=== PATIENT | male | born 1965 | race African-American/Black ===

== ENCOUNTER 2019-12-07 10:58 | Outpatient (CLI) | payer OTHER ==
--- NOTE | 2019-12-07 11:25 | RAD ---
Exam: XR Hip Lt 2-3 View HISTORY: Left hip pain and grinding sensation. Disability evaluation. COMPARISON: None FINDINGS: There is osteoarthritis involving the left hip joint with osteophytes and joint space narrowing prese nt. No acute fracture, dislocation, or other acute osseous abnormality is identified. Vascular calcifications are seen in the femoral arteries. IMPRESSION: Left hip osteoarthritis without acute osseous abnormality.
== END 2019-12-07 10:59 | disposition home or self-care (01) ==
LOC: BICRAD 10:58
PROVIDERS: ATTEND Internal Medicine
DX: Z02.71 Encounter for disability determination (principal); M16.12 Unilateral primary osteoarthritis, left hip

== ENCOUNTER 2021-06-16 14:27 | Outpatient (CLI) | payer MEDICAID, MEDICARE ==
[2021-06-16 15:47] LABS: #Eosinphils 0.4 10x3/uL (0.0-0.5); #Monocytes 0.7 10x3/uL (0.0-1.1); #Neutrophils 6.3 10x3/uL (1.5-8.4); %Basophils 0.3 % (0.0-2.0); %Eosinophils 4.4 % (0.0-6.0); %Monocytes 7.6 % (0.0-10.0); %Neutrophils 67.2 % (40.0-75.0); Hemoglobin 11.9 g/dL (13.5-17.5); Mean Corpuscular HGB CONC 32.4 g/dL (32.0-36.0); Mean Corpuscular Hemoglobin 29.7 pg (27.0-33.0); Mean Corpuscular Volume 91.5 fl (81.2-95.1); Mean Platelet Volume 9.6 fl (7.4-10.4); Platelet Count 283 10x3/uL (150-450); RBC Distribution Width 14.6 % (11.5-14.5); Red Blood Cell (RBC) Count 4.01 10x6/uL (4.32-5.72); White Blood Cell (WBC) Count 9.4 10x3/uL (3.5-10.5)
[2021-06-16 15:51] LABS: INR-International Normal Ratio 0.9; Prothrombin Time 10.5 sec (9.5-12.1)
[2021-06-16 16:01] LABS: Anion Gap 13 mmol/L (10-20); BUN (Urea Nitrogen) 22 mg/dL (8.4-25.7); Calc. Creatinine Clearance 0 mL/min (70-130); Calcium 9.2 mg/dL (7.8-10.44); Carbon Dioxide 25 mmol/L (22-29); Chloride 107 mmol/L (98-107); Glucose 104 mg/dL (70-105); Sodium 141 mmol/L (136-145)
[2021-06-17 07:56] LABS: SARS-CoV-2 PCR by NAA Not Detected (NotDetected)
== END 2021-06-16 14:28 | disposition home or self-care (01) ==
LOC: LABBT 14:27
PROVIDERS: ATTEND Orthopaedic Surgery
DX: Z01.818 Encounter for other preprocedural examination (principal); M16.12 Unilateral primary osteoarthritis, left hip; Z20.822 Contact with and (suspected) exposure to COVID-19
CPT/HCPCS: 80048; 85025; 85610; 87081; 93005; 93010; U0003; U0005

== ENCOUNTER 2021-06-19 08:02 | Day surgery (SDC) | payer MEDICARE, MEDICAID ==
[2021-06-16 09:25] VITALS: BMI 32.5
[2021-06-19] MEDS ORDERED: Tranexamic Acid 1,000 MG/10 ML VIAL ONE (08:15)
[2021-06-19] MEDS ORDERED: Sodium Chloride 0.9% 100 ML ONE (08:15)
[2021-06-19] MEDS ORDERED: Bupivacaine PF 0.5% 30 ML VIAL ONE (08:18)
[2021-06-19] MEDS ORDERED: Fentanyl 250 MCG/5 ML VIAL ONE ×4 (08:21→13:03)
[2021-06-19] MEDS ORDERED: Midazolam HCl 2 mg/2 ml Vial ONE ×2 (08:21→08:37)
[2021-06-19] MEDS ORDERED: Propofol 1,000 MG/100 ML VIAL IV ONE (08:22)
[2021-06-19] MEDS ORDERED: Vancomycin 1.5 GRAM/300 ML BAG 1.5 GM in Premix Bag 1 BAG IVPB SCH (08:30)
[2021-06-19] MEDS ORDERED: ceFAZolin Sodium (SDC) 2 GM/100 ML BAG ONE (08:39)
[2021-06-19] MEDS ORDERED: Glycopyrrolate 0.2 MG/ML 5 ML SYRINGE ONE (08:59)
[2021-06-19] MEDS ORDERED: Bupivacaine HCl 0.5%/Epinephrine 1:200,000/PF 30 ml Vial ONE (08:59)
[2021-06-19] MEDS ORDERED: Phenylephrine 10 MG/ML VIAL ONE (09:14)
[2021-06-19] MEDS ORDERED: Morphine 4 MG/ML VIAL ONE ×2 (12:30→12:51)
[2021-06-19] MEDS ORDERED: HYDROcodone/Acetaminophen 5/325 mg Tablet ONE (13:15)
== END 2021-06-19 14:16 ==
LOC: SDC 08:02
PROVIDERS: ATTEND Orthopaedic Surgery
PROC: 0SRB04A Replacement of Left Hip Joint with Ceramic on Polyethylene Synthetic Substitute, Uncemented, Open Approach (ICD-10-PCS; principal; 2021-06-19)
PROC: 3E0T3BZ Introduction of Anesthetic Agent into Peripheral Nerves and Plexi, Percutaneous Approach (ICD-10-PCS; 2021-06-19)
DX: M16.12 Unilateral primary osteoarthritis, left hip (principal); I10 Essential (primary) hypertension; E78.5 Hyperlipidemia, unspecified; F17.210 Nicotine dependence, cigarettes, uncomplicated; E66.9 Obesity, unspecified; Z68.32 Body mass index [BMI] 32.0-32.9, adult; Z79.899 Other long term (current) drug therapy
CPT/HCPCS: 27130; 64999; 73502; 97139; C1776; J0690; J2250; J2270; J2370; J2704; J3010; J3370; J3490; S0020